=== PATIENT | female | born 1950 | race Caucasian/White ===

== ENCOUNTER → 2020-09-03 | Outpatient (CLI) | payer BC, MEDICARE ==
[~2020-09-03] MED LIST: CYTOMEL50 MCG PO; DIFLUCAN200 MG PO; NORCO 5-325 TA1 EACH PO; PLAQUENIL 200200 MG PO; PRELONE SY15 MG/5 M1 PO; RESTASIS1 EACH OP; ULTRAM ER300 MG PO; VOLTREN XR 100100 MG PO; ZYRTEC10 MG PO
[2020-09-03 16:37] LABS: HEMOGLOBIN 11.8 gm/dl (12.3-15.3); RED BLOOD COUNT 3.99 M/UL (4.00-5.10); WHITE BLOOD COUNT 6.8 K/UL (4.5-11.0)
== END ==
LOC: LAB 15:26
PROVIDERS: Family Medicine
DX: Z01.818 Encounter for other preprocedural examination (principal); R79.1 Abnormal coagulation profile
CPT/HCPCS: 36415; 71046; 80053; 85025; 85610; 85730

== ENCOUNTER → 2021-04-19 | Outpatient (CLI) | payer BC, MEDICARE ==
[2021-04-19 17:22] LABS: HEMOGLOBIN 11.4 gm/dl (12.3-15.3); RED BLOOD COUNT 3.99 M/UL (4.00-5.10); WHITE BLOOD COUNT 7.2 K/UL (4.5-11.0)
[2021-04-19 17:45] LABS: BUN/CREATININE RATIO 21 (0-10)
[2021-04-21 08:10] LABS: RHEUMATOID ARTHRITIS FACTOR 15.3 IU/mL (0.0-13.9)
[2021-04-22 14:11] LABS: ANTI-CENTROMERE B ANTIBODIES <0.2 AI (0.0-0.9); ANTI-DNA (DS) AB QN <1 IU/mL (0-9); ANTI-JO-1 <0.2 AI (0.0-0.9); ANTICHROMATIN ANTIBODIES <0.2 AI (0.0-0.9); ANTIRIBOSOMAL P ANTIBODIES <0.2 AI (0.0-0.9); ANTISCLERODERMA-70 ANTIBODIES <0.2 AI (0.0-0.9); RNP ANTIBODIES 0.2 AI (0.0-0.9); SJOGREN'S ANTI-SS-A <0.2 AI (0.0-0.9); SJOGREN'S ANTI-SS-B <0.2 AI (0.0-0.9); SMITH ANTIBODIES <0.2 AI (0.0-0.9); SMITH/RNP ANTIBODIES <0.2 AI (0.0-0.9)
== END ==
LOC: LAB 16:44
PROVIDERS: Family Medicine
DX: E03.9 Hypothyroidism, unspecified (principal); M25.50 Pain in unspecified joint; R30.0 Dysuria
CPT/HCPCS: 80053; 81001; 83516; 84443; 85025; 85652; 86038; 86140; 86431